=== PATIENT | male | born 1960 | race Caucasian/White ===

== ENCOUNTER → 2017-02-11 | Outpatient (CLI) | payer OTHER ==
[~2017-02-11] MED LIST: CETI10 PO; FLUT50SP EACH NARE; LEVO.2 PO
[2017-02-11 12:36] LABS: ALT (GPT) 24 U/L (12-78); ANION GAP 10 MEQ/L (5-15); AST (GOT) 27 U/L (15-37); BLOOD UREA NITROGEN 7 MG/DL (7-18); CHLORIDE 107 MEQ/L (98-107); GLOMERULAR FILTRATION RATE 77 ML/MIN (>89); GLUCOSE,FASTING 77 MG/DL (74-99); SODIUM (NA) 140 MEQ/L (136-145)
[2017-02-11 12:39] LABS: POTASSIUM 4.5 MEQ/L (3.5-5.1)
[2017-02-11 12:45] LABS: ALKALINE PHOSPHATASE 73 U/L (45-117); LDL CHOLESTEROL 100 MG/DL (0-99); TOTAL BILIRUBIN ADULT 0.5 MG/DL (0.2-1.0)
[2017-02-11 15:20] LABS: AUTOMATED NEUTROPHIL # 2.6 TH/MM3 (1.8-7.7); BASOPHIL # 0.1 TH/MM3 (0-0.2); BASOPHIL % 1.8 % (0.0-2.0); EOSINOPHIL # 0.1 TH/MM3 (0-0.4); EOSINOPHIL % 2.8 % (0.0-4.0); HEMO FLAGS DIFF FINAL; LYMPH % 34.2 % (9.0-44.0); LYMPHOCYTE # 1.7 TH/MM3 (1.0-4.8); MEAN CELL VOLUME 101.6 FL (80.0-100.0); MEAN CORPUSCULAR HEMOGLOBIN 33.4 PG (27.0-34.0); MEAN CORPUSCULAR HGB CONC 32.9 % (32.0-36.0); MONO % 8.5 % (0.0-8.0); NEUT % 52.7 % (16.0-70.0); PLATELET COUNT 309 TH/MM3 (150-450); RED BLOOD COUNT 4.33 MIL/MM3 (4.50-5.90); RED CELL DISTRIBUTION WIDTH 13.4 % (11.6-17.2); WHITE BLOOD COUNT 4.9 TH/MM3 (4.0-11.0)
== END ==
LOC: CLAB 11:46
PROVIDERS: ATTEND Family Medicine
DX: E03.9 Hypothyroidism, unspecified (principal); F10.10 Alcohol abuse, uncomplicated; Z72.0 Tobacco use; Z59.0 Homelessness
CPT/HCPCS: 36415; 80053; 80061; 84443; 85025

== ENCOUNTER → 2017-04-17 | Outpatient (CLI) | payer OTHER ==
[~2017-04-17] MED LIST changes: +LEVO25TA4 PO
[2017-04-17 13:34] LABS: AUTOMATED NEUTROPHIL # 2.8 TH/MM3 (1.8-7.7); BASOPHIL % 0.3 % (0.0-2.0); EOSINOPHIL # 0.1 TH/MM3 (0-0.4); EOSINOPHIL % 2.6 % (0.0-4.0); HEMATOCRIT 40.5 % (39.0-51.0); HEMO FLAGS DIFF FINAL; LYMPH % 31.6 % (9.0-44.0); LYMPHOCYTE # 1.7 TH/MM3 (1.0-4.8); MEAN CELL VOLUME 99.9 FL (80.0-100.0); MEAN CORPUSCULAR HEMOGLOBIN 33.9 PG (27.0-34.0); MEAN CORPUSCULAR HGB CONC 33.9 % (32.0-36.0); MONO % 11.7 % (0.0-8.0); NEUT % 53.8 % (16.0-70.0); PLATELET COUNT 254 TH/MM3 (150-450); RED BLOOD COUNT 4.05 MIL/MM3 (4.50-5.90); WHITE BLOOD COUNT 5.2 TH/MM3 (4.0-11.0)
== END ==
LOC: CLAB 13:11
PROVIDERS: ATTEND Family Medicine
DX: E03.9 Hypothyroidism, unspecified (principal); F10.10 Alcohol abuse, uncomplicated; Z72.0 Tobacco use
CPT/HCPCS: 36415; 85025

== ENCOUNTER → 2017-04-24 | Outpatient (CLI) | payer OTHER | LOC: CLAB 14:34 | PROVIDERS: ATTEND Family Medicine | DX: E03.9 Hypothyroidism, unspecified (principal) | CPT/HCPCS: 36415; 84443 ==

== ENCOUNTER 2017-07-03 10:25 | Emergency (ER) | payer OTHER ==
[2017-07-03 10:29] VITALS: BP 121/76; PULSE 102; RESP 12; TEMP 98.6; O2SAT 99
[2017-07-03] MEDS ORDERED: IBUP1TAB7 PO (12:03)
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
== END 2017-07-03 13:05 | disposition home or self-care (01) ==
LOC: NEPK 10:25
DX: M25.462 Effusion, left knee (principal); E03.9 Hypothyroidism, unspecified; F17.200 Nicotine dependence, unspecified, uncomplicated
CPT/HCPCS: 73564; 99283

== ENCOUNTER 2017-07-28 16:20 | Emergency (ER) | payer OTHER ==
[~2017-07-28] VITALS: Ht 182.9 cm; Wt 90.0 kg
[~2017-07-28 16:20] MED LIST changes: -CETI10 PO; -FLUT50SP EACH NARE; +IBUP1TAB7 PO; -LEVO25TA4 PO
[2017-07-28 16:27] VITALS: BP 177/117; PULSE 79; RESP 16; TEMP 97.9; O2SAT 99
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
[2017-07-28] MEDS ORDERED: IBUPROFEN 800 MG TAB PO ONE (17:15)
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
[2017-07-28] MEDS ORDERED: NORC5TAB PO (17:48)
[2017-07-28] MEDS ORDERED: IBUP1TAB7 PO (17:48)
[2017-07-28 18:19] VITALS: BP 171/79; PULSE 75; RESP 17; O2SAT 97
== END 2017-07-28 18:45 | disposition home or self-care (01) ==
LOC: NEPD 16:20
DX: S82.55XA Nondisplaced fracture of medial malleolus of left tibia, initial encounter for closed fracture (principal); S90.512A Abrasion, left ankle, initial encounter; S80.212A Abrasion, left knee, initial encounter; F41.9 Anxiety disorder, unspecified; E03.9 Hypothyroidism, unspecified; F17.200 Nicotine dependence, unspecified, uncomplicated; Z79.899 Other long term (current) drug therapy; V03.10XA Pedestrian on foot injured in collision with car, pick-up truck or van in traffic accident, initial encounter
CPT/HCPCS: 29515; 73610; 73630; 99284; E0113

== ENCOUNTER → 2017-08-13 | Day surgery (SDC) | payer OTHER ==
[~2017-08-13] VITALS: Ht 175.3 cm; Wt 66.0 kg
[~2017-08-13] MED LIST changes: +*morphine SULFATE 10 MG/ML PERIprocedure ONLY ONE; +ACETAMINOPHEN/HYDROcodone 325 MG/5 MG TAB PO PRN; +BUPIVACAINE/EPINEPHRINE 0.25% 50 ML VIAL ONE; +CHLORHEXIDINE GLUCONATE 2 % 1 PACK (2 CLOTHS) TOPICAL PRN; +CHLORHEXIDINE GLUCONATE 4% SOLN 120 ML BTL TOPICAL SCH; +DO NOT ADM ANY ANTICOAGULANT DRUGS PRN; +GENTAMICIN SULFATE 80 MG/2 ML VIAL ONE; +GLYCOPYRROLATE 1 MG/5 ML SYRINGE IV PUSH ONE; +KETOROLAC TROMETHAMINE 30 MG/ML (IVP) VIAL IVP ONE; +LACTATED RINGER'S 1000 ML IV PRN; +LIDOCAINE HCL 1% PF 5 ML SYRINGE OTHER ONE; +METOPROLOL TARTRATE 25 MG TAB PO PRN; +MORPHINE SULFATE 4 MG/ML INJ IV PUSH PRN; +NEOSTIGMINE 5 MG/5 ML SYRINGE IV PUSH ONE; +NORC5TAB PO; +ONDANSETRON HCL 4 MG/2 ML VIAL IV PUSH ONE; +ONDANSETRON HCL 4 MG/2 ML VIAL IV PUSH PRN; +PHENYLEPH/NS 1000 MCG/10 ML SYR IV ONE; +POVIDONE IODINE 5% (ANTISEPSIS KIT) 4 APPLICATIONS EACH NARE PRN; +PROPOFOL 200 MG/20 ML AMP IV ONE; +ROCURONIUM INJ 50 MG/5 ML SYRINGE IV PUSH ONE; +SODIUM CHLORID 0.9% 500 ML IV PRN; +SODIUM CHLORIDE 0.9% FLUSH 10 ML FLUSH IV FLUSH PRN; +SODIUM CHLORIDE 0.9% FLUSH 10 ML FLUSH IV FLUSH SCH; +ceFAZolin 2 GM PREMIX 50 ML IV SCH; +ceFAZolin INJ 1,000 MG VIAL IV ONE; +ePHEDrine/NS 25 MG/5 ML SYRINGE IV ONE
--- NOTE | 2017-08-13 11:59 | HHI.PR ---
cc: Holly Ferrer MD Immediate Post Op Note Procedure Date: Aug 13, 2017 Pre Op Diagnosis: Closed left medial malleolus fracture Post Op Diagnosis: same Surgeon: Holly Ferrer Esl Instructional Assistant(s): none Procedure: ORIF left medial malleolus fracture Complications: none Specimen(s) removed: none Estimated blood loss: minimal Anesthesia: General Drains: None IVF Patient to: PACU Patient Condition: Good Implant/Devices: SEE IMPLANT LOG (if applicable) Date/Time of Procedure: SEE SURGICAL CARE RECORD Holly Fererr MD Aug 13, 2017 11:59
[2017-08-13 13:10] VITALS: BP 140/75; PULSE 62; RESP 18; TEMP 97.6; O2SAT 100
--- NOTE | 2017-08-13 14:25 | RADRPT ---
EXAM DATE/TIME: 08/13/2017 11:41 [facility] COMPARISON: ANKLE LEFT COMPLETE ([id number]), July 28, 2017, 17:13. INDICATIONS : ORIF left ankle. MEDICAL HISTORY : None. SURGICAL HISTORY : None. ENCOUNTER: Initial ACUITY: 1 day PAIN SCORE: Non-responsive. LOCATION: Left ankle FINDINGS: Matrix views reveal 2 pins transfixing the base of the medial malleolar fracture with fragments in ex cellent approximation in alignment and ankle mortise is intact. CONCLUSION: Orthopedic fixation fracture base of the medial malleolus in excellent approximation of fragments and alignment. Chuy Baca MD on August 13, 2017 at 14:20 Board Certified Radiologist. This report was verified electronically.
--- NOTE | 2017-08-13 14:42 | EKG ---
Date Performed: 08/13/2017 Time Performed: 08:25:06 PTAGE: 57 years EKG: Sinus rhythm EARLY REPOLARIZATION BORDERLINE ECG Since PREVIOUS TRACING , no significant change noted PREVIOUS TRACIN05/16/2016 15.22 DOCTOR: Ana Zarate Interpretating Date/Time 08/13/2017 14:41:30
== END | disposition home or self-care (01) ==
LOC: HSDC 07:48
PROVIDERS: ATTEND Orthopaedic Surgery Orthopaedic Surgery of the Spine
DX: S82.52XA Displaced fracture of medial malleolus of left tibia, initial encounter for closed fracture (principal); F17.290 Nicotine dependence, other tobacco product, uncomplicated; Z01.810 Encounter for preprocedural cardiovascular examination; V19.9XXA Pedal cyclist (driver) (passenger) injured in unspecified traffic accident, initial encounter; Y93.55 Activity, bike riding
CPT/HCPCS: 01480; 27766; 73610; 76000; 93005; C1713; J0690; J1580; J1885; J2270; J2370; J2405; J2710; J3010; J7120